=== PATIENT | male | born 1970 | race Caucasian/White ===

== ENCOUNTER 2020-12-01 16:54 | Inpatient (IN) | payer OTHER ==
[~2020-12-01] VITALS: Ht 175.3 cm; Wt 97.1 kg
--- NOTE | 2020-12-01 17:03 | NUR ---
CAME IN FOR L SIDED CHEST PAIN R/T LUE SINCE THIS MORNING, TO ER BED 11, HOOKED TO RCP, BP CUFF AND POX. HOOKED TO MONITOR, CHANGED TO HOSP GOWN, WARM BLANKET PROVIDED, PATIENT AAO x 4. NAD NOTED. DR NAVARRETE AT BEDSIDE
--- NOTE | 2020-12-01 17:18 | NUR ---
NEON GLASS BENDER AT BEDSIDE FOE EKG
[2020-12-01] MEDS ORDERED: ACETAMINOPHEN ES 500 MG TABLET PO ONE (18:30)
[2020-12-01] MEDS ORDERED: ASPIRIN 325 MG TABLET PO ONE (18:30)
--- NOTE | 2020-12-01 18:30 | NUR ---
CALLED NURSING SUP FOR TELE BED.
[2020-12-01 18:33] LABS: BASOPHILS % (AUTO) 0.4 % (0.0-2.0); EOSINOPHILS % (AUTO) 1.1 % (0.0-6.0); HEMATOCRIT 42 % (39-51); HEMOGLOBIN 14.6 g/dL (13.5-17.5); LYMPHOCYTES # (AUTO) 1.6 /CMM (0.8-4.8); LYMPHOCYTES % (AUTO) 22.9 % (20.0-44.0); MEAN CORPUSCULAR HGB CONC 35 g/dl (31.0-36.0); MEAN CORPUSCULAR VOLUME 94 fL (80-96); MONOCYTES # (AUTO) 0.5 /CMM (0.1-1.30); MONOCYTES % (AUTO) 7.3 % (2.0-12.0); NEUTROPHILS # (AUTO) 4.9 /CMM (1.8-8.9); NEUTROPHILS % (AUTO) 68.3 % (43.0-81.0); PLATELET COUNT (AUTO) 220 /CMM (150-450); WHITE BLOOD COUNT (AUTO) 7.1 K/uL (4.3-11.0)
[2020-12-01] MEDS ORDERED: ASPIRIN 325 MG TABLET ONE (18:41)
--- NOTE | 2020-12-01 18:42 | NUR ---
COVID RESULT NEGATIVE
--- NOTE | 2020-12-01 19:17 | NUR ---
REPORT GIVEN TO JOSEFINA THRASHER FOR ISAAK
[2020-12-01 19:39] LABS: CARBON DIOXIDE 24 mmol/L (21-32); CHLORIDE 104 mmol/L (98-107); CREATININE 0.9 mg/dL (0.6-1.3); GLUCOSE 104 mg/dL (74-106); POTASSIUM 3.9 mmol/L (3.5-5.1); SODIUM SERUM 139 mmol/L (136-145); UREA NITROGEN, BLOOD 23 mg/dL (7-18)
[2020-12-01 19:45] LABS: ALANINE AMINOTRANSFERASE 35 U/L (12-78); ALBUMIN 3.7 g/dL (3.4-5.0); ALKALINE PHOSPHATASE 69 U/L (46-116); ASPARTATE AMINOTRANSFERASE 27 U/L (15-37); BILIRUBIN,DIRECT 0.1 mg/dL (0.0-0.2); BILIRUBIN,TOTAL 0.8 mg/dL (0.2-1.0); TOTAL PROTEIN, SERUM 7.2 g/dL (6.4-8.2)
--- NOTE | 2020-12-01 19:45 | NUR ---
TOOK OVER PT CARE. PT ASLEEP IN BED, REMAINS ON MONITOR AND PULSE OX. VSS.
[2020-12-01] MEDS ORDERED: Z GUARD REMEDY 2 OZ OINT TP PRN (20:00)
[2020-12-01] MEDS ORDERED: ZOLPIDEM TARTRATE 5 MG TABLET PO PRN (20:00)
[2020-12-01] MEDS ORDERED: ACETAMINOPHEN 325 MG TABLET PO PRN (20:00)
[2020-12-01] MEDS ORDERED: MAG HYDROX/AL HYDROX/SIMETH 30 ML UDC PO PRN (20:00)
[2020-12-01] MEDS ORDERED: ONDANSETRON HCL/PF 4 MG/2 ML VIAL IVP PRN (20:00)
[2020-12-01] MEDS ORDERED: MAGNESIUM HYDROXIDE 30 ML UDC PO PRN (20:00)
[2020-12-01] MEDS ORDERED: HYDROCODONE/APAP 5/325MG TABLET PO PRN (20:00)
--- NOTE | 2020-12-01 20:19 | NUR ---
PT AMBULATED TO THE RESTROOM
--- NOTE | 2020-12-01 22:42 | NUR ---
UPDATED FAMILY ON PT CONDITION
--- NOTE | 2020-12-02 04:38 | NUR ---
PT AMBULATED TO THE RESTROOM, VSS.
[2020-12-02 04:39] LABS: BASOPHILS % (AUTO) 0.6 % (0.0-2.0); EOSINOPHILS % (AUTO) 2.6 % (0.0-6.0); HEMATOCRIT 42 % (39-51); HEMOGLOBIN 14.5 g/dL (13.5-17.5); LYMPHOCYTES % (AUTO) 34.3 % (20.0-44.0); MEAN CORPUSCULAR HGB CONC 35 g/dl (31.0-36.0); MEAN CORPUSCULAR VOLUME 94 fL (80-96); MONOCYTES # (AUTO) 0.4 /CMM (0.1-1.30); MONOCYTES % (AUTO) 6.9 % (2.0-12.0); NEUTROPHILS # (AUTO) 3.3 /CMM (1.8-8.9); NEUTROPHILS % (AUTO) 55.6 % (43.0-81.0); PLATELET COUNT (AUTO) 193 /CMM (150-450); RED BLOOD CELL COUNT(AUTO) 4.42 MIL/uL (4.5-6.0); WHITE BLOOD COUNT (AUTO) 5.9 K/uL (4.3-11.0)
[2020-12-02 05:05] LABS: CALCIUM, SERUM 8.7 mg/dL (8.5-10.1); CREATININE 0.9 mg/dL (0.6-1.3); MAGNESIUM 1.9 mg/dL (1.8-2.4); PHOSPHORUS 3.2 mg/dL (2.5-4.9); POTASSIUM 3.9 mmol/L (3.5-5.1)
--- NOTE | 2020-12-02 06:18 | NUR ---
TELE 915-4
--- NOTE | 2020-12-02 07:43 | NUR ---
REPORT GIVEN TO ISAI THRASHER FOR ISAAK
[2020-12-02] MEDS ORDERED: NITR0.4T48 PO (07:56)
[2020-12-02] MEDS ORDERED: ASPI-1169 PO (07:56)
[2020-12-02 08:00] VITALS: BP 130/86
--- NOTE | 2020-12-02 08:02 | NUR ---
report given to edgar weinstein of tele unit
[2020-12-02 08:50] VITALS: BP 130/86
[2020-12-02] MEDS: ATORVASTATIN 10 MG TABLET PO SCH (08:50)
[2020-12-02] MEDS ORDERED: CT SWABBABLE VALVE TRANS SET 1 EA INFUS.SET MC ONE (08:58)
[2020-12-02] MEDS ORDERED: IV NS 0.9% 250 ML IV ONE (08:58)
[2020-12-02] MEDS ORDERED: IOHEXOL-350 100 ML VIAL IV ONE (08:58)
--- NOTE | 2020-12-02 09:00 | NUR ---
Tele/RN - Admission Admitted pt from ER, here for Chest pain, A/O x 4, denies chest pain, on room air, tele shows SR, ambulates with steady gait. Skin is intact. Saline lock on the LAC 18 is patent and intact. All belongings accounted. Patient oriented to room and use of call light. Patient signed consent for CTCA. Admission orders noted and implemented.
[2020-12-02] MEDS ORDERED: NITROGLYCERIN 0.4 MG/TAB BOTTLE ONE ×2 (09:13→09:17)
[2020-12-02] MEDS ORDERED: METOPROLOL TARTRATE INJ 5 MG/5 ML AMPUL ONE (09:13)
[2020-12-02] MEDS ORDERED: NITROGLYCERIN 0.4 MG/TAB BOTTLE SL ONE (09:30)
[2020-12-02] MEDS ORDERED: METOPROLOL TARTRATE INJ 5 MG/5 ML AMPUL IVP PRN (09:30)
[2020-12-02] MEDS ORDERED: ATOR20TA PO (10:23)
--- NOTE | 2020-12-02 13:45 | NUR ---
Tele/RN - Intervention Cardio consult Seen and examined by Dr. Dolores MD discussed CTCA result with recommendation for left heart catheterization and PCI. Patient agreeable to proceed and signed the consent. Son aware of procedure tomorrow.
[2020-12-02 16:00] VITALS: BP 118/72
--- NOTE | 2020-12-02 17:30 | NUR ---
Tele/RN - End of shift summary No new issues, patient denies chest pain, not in any form of distress, NPO after midnight for left heart catheterization and PCI by Dr. Bernal tomorrow. Saline lock on the MARTAH is patent, intact, with no signs of infiltration. All needs attended. Will continue with current medical management.
--- NOTE | 2020-12-02 20:00 | NUR ---
RN NOTES RECEIVED PT. SLEEPING BUT AROUSABLE, A/OX4, CHINESE/KYRGYZ SPEAKING SR ON TELE MONITOR HR-88, DENIES PAIN, NO SOB, CALL LIGHT WITHIN REACH, [id number], PT. NEEDS ATTENDED
[2020-12-02 20:12] VITALS: BP 130/78
[2020-12-03] VITALS (23 sets, daily range): BP systolic 107–146; BP diastolic 67–98
[2020-12-03] MEDS ORDERED: IODIXANOL 150 ML IV ONE (06:43)
[2020-12-03] MEDS ORDERED: IV NS 0.9% 1,000 ML ONE (06:43)
[2020-12-03] MEDS ORDERED: LIDOCAINE HCL/MPF 1% 30 ML VIAL IJ ONE (06:44)
[2020-12-03] MEDS ORDERED: NITROGLYCERIN ICAR 1,000 MCG/10 ML VIAL ICAR ONE (06:44)
--- NOTE | 2020-12-03 06:45 | NUR ---
RN NOTES PT. WENT DOWN FOR CARDIAC CATH, NO PAIN, NOT IN DISTRESS
[2020-12-03] MEDS ORDERED: FENTANYL PF 100MCG/2ML AMPUL ONE (06:51)
[2020-12-03] MEDS ORDERED: MIDAZOLAM HCL 2 MG/2ML VIAL ONE (06:51)
[2020-12-03] MEDS ORDERED: HEPARIN SODIUM, PORCINE 1,000 UNIT/ML VIAL ONE (07:34)
[2020-12-03] MEDS ORDERED: HEPARIN SODIUM, PORCINE 5000 UNITS/1 ML VIAL ONE (07:34)
[2020-12-03] MEDS ORDERED: IODIXANOL 320MG/ML 50 ML IV ONE (07:42)
[2020-12-03] MEDS ORDERED: ASPIRIN 81 MG TAB.CHEW ONE (07:52)
[2020-12-03] MEDS ORDERED: TICAGRELOR 90 MG TABLET PO ONE (07:52)
--- NOTE | 2020-12-03 08:45 | NUR ---
ENTRY LEVEL ADMINISTRATIVE ASSISTANT: got pt.from cathlab, A/Ox3, no C/O, no any pain, got LAD stent by report, R.radial pressure bend, R.radial pulse+, BP 126/77, HR 60, O2sat 98%, T WNL, per cathlab nurse: start to remove air in 1 hr, NS@100ml/hr x6hrs, called to [facility] for belongings
--- NOTE | 2020-12-03 08:45 | NUR ---
SELF CONTAINED BEHAVIOR UNIT TEACHER: 18cc air into band
--- NOTE | 2020-12-03 09:30 | NUR ---
LABORER TIN CAN: ACT stat order is in comp, called to lab
--- NOTE | 2020-12-03 09:55 | NUR ---
MOTOR HOME ELECTRICAL FOREMAN: started remove 2-5cc air from bend, no bleeding now
--- NOTE | 2020-12-03 10:30 | NUR ---
PRESIDENT CELEBRITY ACQUISTION: continue remove air/no bleeding, order from cathlab: aspirin 81mg, Brilinta 90mg BID, same orders were in comp, pt.took same pills/dont remember what, called pharmacy
[2020-12-03] MEDS: ATORVASTATIN 10 MG TABLET PO SCH (10:39)
--- NOTE | 2020-12-03 11:07 | NUR ---
DIAMOND SETTER: sent cathlab orders to pharmacy
--- NOTE | 2020-12-03 11:44 | NUR ---
MAMMOGRAPHER: removed R.radial pressure band/ no bleeding, no c/o, no pain
--- NOTE | 2020-12-03 18:10 | NUR ---
MIS DIRECTOR: report is given for Shirley almendarez/Andria for one month with d/c
--- NOTE | 2020-12-03 18:37 | NUR ---
CONCRETE FORM SETTER: pt is A/Ox3, no pain, no c/o, SR, BP WNL, urinates well, no R.RA bleeding, c/o R.FA itching around PIVL/removed
--- NOTE | 2020-12-03 19:33 | NUR ---
INFORMATICS SPEC OPENING NOTES: Rec'd pt in bed A&Ox4. On room air tolerating well. No SOB or resp distress noted. SR on tele monitor. Left hand #20 patent and flushed. Dressing c/d/i. Urinal at bedside. Safety measures in place. Will continue to monitor.
[2020-12-03] MEDS: TICAGRELOR 90 MG TABLET PO SCH (20:11)
[2020-12-04] VITALS (11 sets, daily range): BP systolic 80–132; BP diastolic 57–99
[2020-12-04 05:37] LABS: BASOPHILS % (AUTO) 0.6 % (0.0-2.0); EOSINOPHILS % (AUTO) 1.5 % (0.0-6.0); HEMATOCRIT 42 % (39-51); HEMOGLOBIN 14.6 g/dL (13.5-17.5); LYMPHOCYTES # (AUTO) 2.2 /CMM (0.8-4.8); LYMPHOCYTES % (AUTO) 28.3 % (20.0-44.0); MEAN CORPUSCULAR HGB CONC 34 g/dl (31.0-36.0); MEAN CORPUSCULAR VOLUME 95 fL (80-96); MONOCYTES # (AUTO) 0.5 /CMM (0.1-1.30); MONOCYTES % (AUTO) 6.8 % (2.0-12.0); NEUTROPHILS # (AUTO) 4.9 /CMM (1.8-8.9); NEUTROPHILS % (AUTO) 62.8 % (43.0-81.0); PLATELET COUNT (AUTO) 193 /CMM (150-450); RED BLOOD CELL COUNT(AUTO) 4.48 MIL/uL (4.5-6.0); WHITE BLOOD COUNT (AUTO) 7.8 K/uL (4.3-11.0)
[2020-12-04 06:15] LABS: CALCIUM, SERUM 8.8 mg/dL (8.5-10.1)
[2020-12-04] MEDS ORDERED: TICA90TA PO (08:49)
[2020-12-04] MEDS ORDERED: ASPIRIN EC 81 MG TABLET.DR PO SCH (09:00)
[2020-12-04] MEDS: TICAGRELOR 90 MG TABLET PO SCH (09:20)
[2020-12-04] MEDS: ATORVASTATIN 10 MG TABLET PO SCH (09:20)
--- NOTE | 2020-12-04 09:30 | NUR ---
MANAGER SPECIAL EVENTS: pt: no c/o, no any pain, SR, BP WNL, evaluated/ordered d/c to home, spoke with , sent prescription to pharmacy for Brilinta 90mg/BID for one month, spoke with pillowcase turner
--- NOTE | 2020-12-04 12:21 | NUR ---
TOBACCO CURER: pt is discharged, got d/c package, CD, phone#, Brilinta is available in pharmacy
== END 2020-12-04 12:30 | disposition home or self-care (01) | DRG 246 ==
LOC: ER 17:00 → TRANSITION 21:00 → TELE 12-02 06:23 → ICU 12-03 08:39
PROVIDERS: ADMIT Family Medicine; ATTEND Family Medicine
PROC: 4A023N7 Measurement of Cardiac Sampling and Pressure, Left Heart, Percutaneous Approach (ICD-10-PCS; principal; 2020-12-03)
PROC: 027034Z Dilation of Coronary Artery, One Artery with Drug-eluting Intraluminal Device, Percutaneous Approach (ICD-10-PCS; 2020-12-03)
PROC: B211YZZ Fluoroscopy of Multiple Coronary Arteries using Other Contrast (ICD-10-PCS; 2020-12-03)
DX: I25.110 Atherosclerotic heart disease of native coronary artery with unstable angina pectoris (principal); N17.0 Acute kidney failure with tubular necrosis; Z68.41 Body mass index [BMI] 40.0-44.9, adult; E66.01 Morbid (severe) obesity due to excess calories; Z82.49 Family history of ischemic heart disease and other diseases of the circulatory system; Z20.822 Contact with and (suspected) exposure to COVID-19; Z82.3 Family history of stroke; Z79.82 Long term (current) use of aspirin; Z79.899 Other long term (current) drug therapy; Z72.0 Tobacco use
CPT/HCPCS: 36415; 71045-TC; 75574; 80048-TC; 80061-TC; 80076-TC; 83735-TC; 84100-TC; 84484-TC; 85025-TC; 87081-TC; 92980; 93307-TC; C1725; C1751; C1769; C9803; G0378; G0500; J1644; J2250; J3010; J3490; J7050; Q9967

== ENCOUNTER 2020-12-22 14:24 | Emergency (ER) | payer OTHER ==
[~2020-12-22] VITALS: Ht 180.3 cm; Wt 98.9 kg
[~2020-12-22 14:24] MED LIST: ASPI-1169 PO; ATOR20TA PO; NITR0.4T48 PO; TICA90TA PO
--- NOTE | 2020-12-22 14:46 | NUR ---
PT C/O LT SIDED CHEST PAIN X 15 DAYS. RADIATING TO LT ARM & NECK WITH SOME DIZZINESS & NAUSEA PER PT. DENIES SOB, WEAKNESS AT THIS TIME. PT SEEN & EVAL'D BY DR. BRO. PLACED ON EYE SURGEON, SR. WILL CONT TO MONITOR.
[2020-12-22 14:54] LABS: MONOCYTES # (AUTO) 0.5 /CMM (0.1-1.30)
[2020-12-22 14:57] LABS: BASOPHILS # (AUTO) 0.1 /CMM (0.0-0.2); BASOPHILS % (AUTO) 0.7 % (0.0-2.0); EOSINOPHILS % (AUTO) 1.2 % (0.0-6.0); HEMATOCRIT 42 % (39-51); HEMOGLOBIN 14.6 g/dL (13.5-17.5); LYMPHOCYTES # (AUTO) 1.9 /CMM (0.8-4.8); LYMPHOCYTES % (AUTO) 25.2 % (20.0-44.0); MEAN CORPUSCULAR HGB CONC 35 g/dl (31.0-36.0); MEAN CORPUSCULAR VOLUME 94 fL (80-96); MONOCYTES % (AUTO) 6.5 % (2.0-12.0); NEUTROPHILS # (AUTO) 5.1 /CMM (1.8-8.9); NEUTROPHILS % (AUTO) 66.4 % (43.0-81.0); PLATELET COUNT (AUTO) 223 /CMM (150-450); RED BLOOD CELL COUNT(AUTO) 4.44 MIL/uL (4.5-6.0); WHITE BLOOD COUNT (AUTO) 7.7 K/uL (4.3-11.0)
[2020-12-22 15:10] LABS: ALANINE AMINOTRANSFERASE 38 U/L (12-78); ALBUMIN 3.7 g/dL (3.4-5.0); ALKALINE PHOSPHATASE 67 U/L (46-116); ASPARTATE AMINOTRANSFERASE 22 U/L (15-37); BILIRUBIN,DIRECT 0.1 mg/dL (0.0-0.2); BILIRUBIN,TOTAL 0.5 mg/dL (0.2-1.0); CALCIUM, SERUM 8.7 mg/dL (8.5-10.1); CARBON DIOXIDE 25 mmol/L (21-32); CHLORIDE 103 mmol/L (98-107); GLUCOSE 102 mg/dL (74-106); LIPASE 166 U/L (73-393); POTASSIUM 3.9 mmol/L (3.5-5.1); SODIUM SERUM 138 mmol/L (136-145); TOTAL PROTEIN, SERUM 7.3 g/dL (6.4-8.2); UREA NITROGEN, BLOOD 17 mg/dL (7-18)
--- NOTE | 2020-12-22 15:20 | NUR ---
DR. DEVEN ANDRADE.
[2020-12-22 15:36] VITALS: BP 123/90
--- NOTE | 2020-12-22 15:36 | NUR ---
Patient discharged to home in stable condition. Written and verbal after care instructions given. Patient verbalizes understanding of instruction.
--- NOTE | 2020-12-22 15:36 | NUR ---
IV removed. Catheter intact and site benign. Pressure and 4x4 applied to site. No bleeding noted.
== END 2020-12-22 15:39 | disposition home or self-care (01) ==
LOC: ER 14:27
DX: S29.011A Strain of muscle and tendon of front wall of thorax, initial encounter (principal); R53.1 Weakness; I25.10 Atherosclerotic heart disease of native coronary artery without angina pectoris; I10 Essential (primary) hypertension; I25.2 Old myocardial infarction; F17.200 Nicotine dependence, unspecified, uncomplicated; Z95.5 Presence of coronary angioplasty implant and graft; Z79.82 Long term (current) use of aspirin; Z79.899 Other long term (current) drug therapy; X58.XXXA Exposure to other specified factors, initial encounter; Y93.89 Activity, other specified; Y92.89 Other specified places as the place of occurrence of the external cause; Y99.8 Other external cause status
CPT/HCPCS: 36415; 71045-TC; 80048-TC; 80076-TC; 83690-TC; 83880; 84484-TC; 85025-TC

== ENCOUNTER 2022-07-06 10:31 | Inpatient (IN) | payer MEDICAID, OTHER ==
[~2022-07-06] VITALS: Ht 175.3 cm; Wt 97.5 kg
--- NOTE | 2022-07-06 10:45 | NUR ---
Pt made aware of plan of care. Family at bedside
[2022-07-06 11:39] LABS: BASOPHILS % (AUTO) 0.4 % (0.0-2.0); EOSINOPHILS % (AUTO) 1.6 % (0.0-6.0); HEMATOCRIT 43 % (39-51); HEMOGLOBIN 14.7 g/dL (13.5-17.5); LYMPHOCYTES # (AUTO) 1.8 K/uL (0.8-4.8); LYMPHOCYTES % (AUTO) 26.1 % (20.0-44.0); MEAN CORPUSCULAR HGB CONC 34 g/dl (31.0-36.0); MEAN CORPUSCULAR VOLUME 93 fL (80-96); MONOCYTES # (AUTO) 0.4 K/uL (0.1-1.30); MONOCYTES % (AUTO) 5.8 % (2.0-12.0); NEUTROPHILS # (AUTO) 4.6 K/uL (1.8-8.9); NEUTROPHILS % (AUTO) 66.1 % (43.0-81.0); PLATELET COUNT (AUTO) 203 K/uL (150-450); WHITE BLOOD COUNT (AUTO) 6.9 K/uL (4.3-11.0)
[2022-07-06 11:53] LABS: CALCIUM, SERUM 8.5 mg/dL (8.5-10.1); CARBON DIOXIDE 28 mmol/L (21-32); CHLORIDE 104 mmol/L (98-107); CREATININE 1.1 mg/dL (0.6-1.3); GLUCOSE 229 mg/dL (74-106); POTASSIUM 3.6 mmol/L (3.5-5.1); SODIUM SERUM 138 mmol/L (136-145); UREA NITROGEN, BLOOD 15 mg/dL (7-18)
--- NOTE | 2022-07-06 12:33 | NUR ---
CALLED EPIC CARDIO, DR SAEED PAGED
[2022-07-06] MEDS ORDERED: ONDANSETRON HCL/PF 4 MG/2 ML VIAL IVP PRN (13:30)
[2022-07-06] MEDS ORDERED: MAG HYDROX/AL HYDROX/SIMETH 30 ML UDC PO PRN (13:30)
[2022-07-06] MEDS ORDERED: ENOXAPARIN SODIUM 100 MG/ML DISP.SYRIN SQ ONE ×2 (13:30→15:07)
[2022-07-06] MEDS ORDERED: NITROGLYCERIN 0.4 MG/TAB BOTTLE SL PRN (13:30)
[2022-07-06] MEDS ORDERED: ACETAMINOPHEN 325 MG TABLET PO PRN (13:30)
[2022-07-06] MEDS ORDERED: ASPIRIN 81 MG TAB.CHEW PO SCH (13:30)
[2022-07-06] MEDS ORDERED: MORPHINE SULFATE INJ 2 MG/ML DISP.SYRIN IV PRN (13:30)
--- NOTE | 2022-07-06 13:49 | NUR ---
Patient's Friend and Primary Contact is (Tanner Pierce: [phone])
[2022-07-06] MEDS ORDERED: ASPIRIN 81 MG TAB.CHEW ONE (15:07)
--- NOTE | 2022-07-06 15:19 | NUR ---
Awaiting Bed assignment. NO acute changes- Appears comfortable reclining in [facility] -Status quo
--- NOTE | 2022-07-06 16:00 | NUR ---
Given juices/crackers-tolerated well. Admited but Still waiting for room
--- NOTE | 2022-07-06 18:45 | NUR ---
BED 307-2
[2022-07-06 19:30] VITALS: BP 130/72
--- NOTE | 2022-07-06 19:34 | NUR ---
Patient does not wish to proceed with medical care recommended by . Patient given information related to possible complications, up to and including , which could occur as a result of leaving the hospital at this time. Patient verbalizes understanding of risks involved due to leaving against medical advice. Patient has signed AMA form.
[2022-07-06] MEDS ORDERED: MAGNESIUM HYDROXIDE 30 ML UDC PO PRN (22:00)
[2022-07-06] MEDS ORDERED: SIMVASTATIN 20 MG TABLET PO SCH (22:00)
[2022-07-07] MEDS ORDERED: PANTOPRAZOLE 40 MG TABLET.DR PO SCH (07:30)
== END 2022-07-07 | disposition left against medical advice (07) | DRG 198 ==
LOC: ER 10:35 → TRANSITION 16:33 → TELE 18:50
DX: I25.10 Atherosclerotic heart disease of native coronary artery without angina pectoris (principal); E78.5 Hyperlipidemia, unspecified; I25.2 Old myocardial infarction; I10 Essential (primary) hypertension; Z95.5 Presence of coronary angioplasty implant and graft; Z82.3 Family history of stroke; Z82.49 Family history of ischemic heart disease and other diseases of the circulatory system; Z79.82 Long term (current) use of aspirin; Z79.899 Other long term (current) drug therapy; Z79.02 Long term (current) use of antithrombotics/antiplatelets; Z72.0 Tobacco use; Z53.29 Procedure and treatment not carried out because of patient's decision for other reasons
CPT/HCPCS: 36415; 71045-TC; 80048-TC; 83880; 84484-TC; 85025-TC; 87081-TC; 93307-TC; 93971-TC; G0378; J1650; J3490

== ENCOUNTER 2023-09-17 11:41 | Inpatient (IN) | payer MEDICAID ==
[~2023-09-17] VITALS: Ht 172.7 cm; Wt 100.7 kg
[~2023-09-17 11:41] MED LIST changes: -ATOR20TA PO; -NITR0.4T48 PO; -TICA90TA PO
[2023-09-17 12:28] LABS: BASOPHILS % (AUTO) 0.6 % (0.0-2.0); EOSINOPHILS # (AUTO) 0.1 K/uL (0.0-0.7); EOSINOPHILS % (AUTO) 1.1 % (0.0-6.0); HEMATOCRIT 43 % (39-51); HEMOGLOBIN 14.7 g/dL (13.5-17.5); LYMPHOCYTES # (AUTO) 1.8 K/uL (0.8-4.8); LYMPHOCYTES % (AUTO) 28.9 % (20.0-44.0); MEAN CORPUSCULAR HEMOGLOBIN 32 PG (26.0-33.0); MEAN CORPUSCULAR HGB CONC 35 g/dl (31.0-36.0); MEAN CORPUSCULAR VOLUME 93 fL (80-96); MONOCYTES # (AUTO) 0.5 K/uL (0.1-1.30); MONOCYTES % (AUTO) 7.2 % (2.0-12.0); NEUTROPHILS # (AUTO) 3.9 K/uL (1.8-8.9); NEUTROPHILS % (AUTO) 62.2 % (43.0-81.0); PLATELET COUNT (AUTO) 212 K/uL (150-450); RED BLOOD CELL COUNT(AUTO) 4.55 MIL/uL (4.5-6.0); RED CELL DISTRIBUTION WIDTH 12.6 % (11.5-15.0); WHITE BLOOD COUNT (AUTO) 6.3 K/uL (4.3-11.0)
[2023-09-17 12:43] LABS: CALCIUM, SERUM 8.8 mg/dL (8.5-10.1); CARBON DIOXIDE 26 mmol/L (21-32); CHLORIDE 101 mmol/L (98-107); CREATININE 0.9 mg/dL (0.6-1.3); GLUCOSE 126 mg/dL (74-106); POTASSIUM 3.8 mmol/L (3.5-5.1); SODIUM SERUM 134 mmol/L (136-145); UREA NITROGEN, BLOOD 16 mg/dL (7-18)
[2023-09-17 12:59] LABS: ALANINE AMINOTRANSFERASE 76 U/L (12-78); ALBUMIN 3.8 g/dL (3.4-5.0); ALKALINE PHOSPHATASE 77 U/L (46-116); ASPARTATE AMINOTRANSFERASE 31 U/L (15-37); BILIRUBIN,DIRECT 0.1 mg/dL (0.0-0.2); BILIRUBIN,TOTAL 0.6 mg/dL (0.2-1.0); TOTAL PROTEIN, SERUM 7.2 g/dL (6.4-8.2)
[2023-09-17] MEDS ORDERED: ATOR80TA PO (13:25)
[2023-09-17] MEDS ORDERED: CARV25TA2 PO (13:25)
[2023-09-17] MEDS ORDERED: ZOLPIDEM TARTRATE 5 MG TABLET PO PRN (15:00)
[2023-09-17] MEDS ORDERED: Z GUARD REMEDY 4 OZ OINT TP PRN (15:00)
[2023-09-17] MEDS ORDERED: MORPHINE SULFATE INJ 2 MG/ML DISP.SYRIN IV PRN (15:00)
[2023-09-17] MEDS ORDERED: ONDANSETRON HCL/PF 4 MG/2 ML VIAL IVP PRN (15:00)
[2023-09-17] MEDS ORDERED: NITROGLYCERIN 0.4 MG/TAB BOTTLE SL ONE (15:00)
[2023-09-17] MEDS ORDERED: MAG HYDROX/AL HYDROX/SIMETH 30 ML UDC PO PRN (15:00)
[2023-09-17] MEDS ORDERED: MAGNESIUM HYDROXIDE 30 ML UDC PO PRN (15:00)
[2023-09-17] MEDS ORDERED: ACETAMINOPHEN 325 MG TABLET PO PRN (15:00)
[2023-09-17 15:37] LABS: THYROID STIMULATING HORMONE 1.247 uIU/mL (0.358-3.74)
[2023-09-17 16:05] VITALS: BP 128/74; TEMP 97.8; O2SAT 97
[2023-09-17] MEDS ORDERED: ATORVASTATIN 40 MG TABLET PO SCH (18:00)
[2023-09-18] VITALS: BP 135/92; TEMP 98.7; O2SAT 96
[2023-09-18 07:23] LABS: BASOPHILS % (AUTO) 0.7 % (0.0-2.0); EOSINOPHILS # (AUTO) 0.1 K/uL (0.0-0.7); HEMOGLOBIN 15.2 g/dL (13.5-17.5); LYMPHOCYTES # (AUTO) 2.1 K/uL (0.8-4.8); MONOCYTES # (AUTO) 0.5 K/uL (0.1-1.30); RED CELL DISTRIBUTION WIDTH 12.6 % (11.5-15.0)
[2023-09-18 07:30] LABS: EOSINOPHILS % (AUTO) 1.4 % (0.0-6.0); HEMATOCRIT 44 % (39-51); LYMPHOCYTES % (AUTO) 31.2 % (20.0-44.0); MEAN CORPUSCULAR HEMOGLOBIN 32 PG (26.0-33.0); MEAN CORPUSCULAR HGB CONC 35 g/dl (31.0-36.0); MEAN CORPUSCULAR VOLUME 94 fL (80-96); MONOCYTES % (AUTO) 7.5 % (2.0-12.0); NEUTROPHILS # (AUTO) 4.1 K/uL (1.8-8.9); NEUTROPHILS % (AUTO) 59.2 % (43.0-81.0); PLATELET COUNT (AUTO) 215 K/uL (150-450); RED BLOOD CELL COUNT(AUTO) 4.71 MIL/uL (4.5-6.0); WHITE BLOOD COUNT (AUTO) 6.9 K/uL (4.3-11.0)
[2023-09-18 07:51] LABS: CALCIUM, SERUM 8.9 mg/dL (8.5-10.1); MAGNESIUM 1.9 mg/dL (1.8-2.4); PHOSPHORUS 3.4 mg/dL (2.5-4.9); POTASSIUM 4.4 mmol/L (3.5-5.1)
[2023-09-18] MEDS: CARVEDILOL 12.5 MG TABLET PO SCH ×3 (08:22→16:07)
[2023-09-18] MEDS ORDERED: PANTOPRAZOLE 40 MG VIAL IV SCH (09:00)
[2023-09-18] MEDS ORDERED: ASPIRIN 81 MG TAB.CHEW PO SCH (09:00)
[2023-09-18] MEDS ORDERED: CARVEDILOL 12.5 MG TABLET PO SCH (09:00)
[2023-09-18 09:16] VITALS: BP 138/88; TEMP 97.8; O2SAT 97
[2023-09-18] MEDS ORDERED: IV NS 0.9% 250 ML IV ONE (13:40)
[2023-09-18] MEDS ORDERED: IOHEXOL-350 100 ML VIAL IV ONE (13:40)
[2023-09-18] MEDS: METOPROLOL TARTRATE INJ 5 MG/5 ML AMPUL IVP PRN ×2 (13:50→13:55)
[2023-09-18] MEDS ORDERED: NITROGLYCERIN 0.4 MG/TAB BOTTLE ONE (13:53)
[2023-09-18] MEDS ORDERED: METOPROLOL TARTRATE INJ 5 MG/5 ML AMPUL ONE (13:54)
[2023-09-18] MEDS ORDERED: NITROGLYCERIN 0.4 MG/TAB BOTTLE SL ONE (14:00)
[2023-09-18] MEDS ORDERED: PANT40TA2 PO (15:47)
[2023-09-18] MEDS ORDERED: diphenhydrAMINE HCL 50 MG/ML VIAL IV ONE (16:00)
[2023-09-18] MEDS ORDERED: METOCLOPRAMIDE HCL 10 MG/2 ML VIAL IV ONE (16:00)
[2023-09-18 16:23] VITALS: BP 128/74; TEMP 97.8; O2SAT 97
== END 2023-09-18 17:44 | disposition home or self-care (01) | DRG 243 ==
LOC: ER 11:46 → TELE1 15:32
PROVIDERS: ADMIT Nurse Practitioner Acute Care; ATTEND Nurse Practitioner Acute Care
DX: K21.9 Gastro-esophageal reflux disease without esophagitis (principal); E66.9 Obesity, unspecified; E78.5 Hyperlipidemia, unspecified; F17.210 Nicotine dependence, cigarettes, uncomplicated; I25.10 Atherosclerotic heart disease of native coronary artery without angina pectoris; Z68.31 Body mass index [BMI] 31.0-31.9, adult; R51.9 Headache, unspecified; I10 Essential (primary) hypertension; Z71.3 Dietary counseling and surveillance; Z82.3 Family history of stroke; Z82.49 Family history of ischemic heart disease and other diseases of the circulatory system; I25.2 Old myocardial infarction; Z79.82 Long term (current) use of aspirin; Z95.5 Presence of coronary angioplasty implant and graft; Z79.899 Other long term (current) drug therapy
CPT/HCPCS: 36415; 71045-TC; 75574; 80048-TC; 80061-TC; 80076-TC; 83735-TC; 84100-TC; 84443-TC; 84484-TC; 85025-TC; 93307-TC; C9113; G0378; J1200; J2765; J3490; J7050; Q9967